=== PATIENT | female | born 2000 | race Caucasian/White ===

== ENCOUNTER 2021-04-08 08:19 | Outpatient (CLI) | payer BC, OTHER ==
[2021-04-08 10:16] LABS: Hemoglobin 12.5 g/dL (12.0-15.5); Mean Corpuscular HGB CONC 34.8 g/dL (32.0-36.0); Mean Corpuscular Hemoglobin 32.1 pg (27.0-33.0); Mean Corpuscular Volume 92.3 fl (81.6-98.3); Mean Platelet Volume 11.3 fl (7.4-10.4); Platelet Count 168 10x3/uL (150-450); RBC Distribution Width 13.2 % (11.5-14.5); Red Blood Cell (RBC) Count 3.89 10x6/uL (3.90-5.03); White Blood Cell (WBC) Count 9.5 10x3/uL (3.5-10.5)
[2021-04-08 10:24] LABS: HIV (1/2) Antibody/Antigen Non-Reactive (NonReactive); HIV 1/2 INDEX 0.09 S/CO (<1.00); Hep B Surf Ag Non-Reactive S/CO (NonReactive); Syphilis Antibody Nonreactive (Nonreactive); Syphilis Antibody Index 0.02 S/CO (<1.00 Non-Reactive)
[2021-04-08 10:26] LABS: HBSAg Index 0.21 S/CO (0-0.99)
== END 2021-04-08 08:20 | disposition home or self-care (01) ==
LOC: CSHLAB 08:19
PROVIDERS: ATTEND Obstetrics & Gynecology
DX: Z01.812 Encounter for preprocedural laboratory examination (principal); O34.211 Maternal care for low transverse scar from previous cesarean delivery; Z86.16 Personal history of COVID-19
CPT/HCPCS: 85027; 86780; 86900; 86901; 87340; 87389

== ENCOUNTER 2021-04-13 05:52 | Inpatient (IN) | payer BC, OTHER ==
[2021-04-13] MEDS ORDERED: Bicitra 30 ML UDCUP PO PRN (05:53)
[2021-04-13] MEDS ORDERED: hydrALAZINE 20 MG/ML VIAL SLOW IVP PRN ×2 (05:53→09:04)
[2021-04-13] MEDS ORDERED: Promethazine HCl 25 MG/ML VIAL IM PRN ×2 (05:53→09:02)
[2021-04-13] MEDS ORDERED: ceFAZolin 2 GM/Dextrose 50 ML 2 GM in Premix Bag 1 BAG IVPB SCH (05:53)
[2021-04-13] MEDS ORDERED: Famotidine/PF 20 mg/2ml Vial SLOW IVP PRN (05:53)
[2021-04-13] MEDS ORDERED: Lactated Ringer's 1,000 ML IV SCH (05:53)
[2021-04-13] MEDS ORDERED: Ondansetron PF 4 MG/2 ML Vial IVP PRN ×3 (05:53→09:04)
[2021-04-13 06:43] VITALS: BMI 29.5
[2021-04-13] MEDS ORDERED: Morphine PF 10 MG/10 ML VIAL ONE (07:08)
[2021-04-13] MEDS ORDERED: ePHEDrine Sulfate 50 MG/10 ML VIAL ONE (07:08)
[2021-04-13] MEDS ORDERED: Oxytocin 10 UNITS/ML VIAL ONE (07:09)
[2021-04-13] MEDS ORDERED: PHENYLEPHRINE-NS 100 MCG/ML 10 ML SYRINGE ONE (07:09)
[2021-04-13] MEDS ORDERED: Phenylephrine 10 MG/ML VIAL ONE (07:09)
[2021-04-13] MEDS ORDERED: Dexamethasone 4 mg/ml Vial ONE (07:09)
[2021-04-13] MEDS ORDERED: Ondansetron PF 4 MG/2 ML Vial ONE (07:09)
[2021-04-13] MEDS ORDERED: diphenhydrAMINE 50 MG/ML VIAL IVP PRN (09:02)
[2021-04-13] MEDS ORDERED: Naloxone HCl 0.4 mg/ml Vial IV PRN (09:02)
[2021-04-13] MEDS ORDERED: Hydrocerin (Eucerin) Cream 120 gm Jar TOP PRN (09:02)
[2021-04-13] MEDS ORDERED: Ondansetron HCl/PF 4 MG/2 ML Vial IVP PRN (09:02)
[2021-04-13] MEDS ORDERED: Promethazine HCl 25 MG SUPP PR PRN (09:02)
[2021-04-13] MEDS ORDERED: Meperidine HCl/PF 25 MG/ML VIAL SLOW IVP PRN (09:02)
[2021-04-13] MEDS ORDERED: Fentanyl 100 MCG/2 ML VIAL SLOW IVP PRN (09:02)
[2021-04-13] MEDS ORDERED: Naloxone HCl 0.4 mg/ml Vial IVP PRN ×2 (09:02)
[2021-04-13] MEDS ORDERED: Acetaminophen 325 MG TAB PO PRN (09:04)
[2021-04-13] MEDS ORDERED: diphenhydrAMINE 25 MG CAP PO PRN (09:04)
[2021-04-13] MEDS ORDERED: Boostrix 0.5 ML (Tdap) VIAL IM ONE (09:04)
[2021-04-13] MEDS ORDERED: Bisacodyl 10 MG SUPP PR PRN (09:04)
[2021-04-13] MEDS ORDERED: Misoprostol 200 MCG TAB PR PRN (09:04)
[2021-04-13] MEDS ORDERED: Lanolin Ointment 7 GM TUBE TOP PRN (09:04)
[2021-04-13] MEDS ORDERED: NS w/ Oxytocin 30 units 500 ML IV SCH (09:15)
[2021-04-13] MEDS ORDERED: Ketorolac Tromethamine 30 MG/ML VIAL IVP SCH (09:15)
[2021-04-13] MEDS ORDERED: Communication Order-Pharmacy FS SCH (09:15)
[2021-04-13] MEDS: Ketorolac Tromethamine 30 MG/ML VIAL IVP PRN ×2 (11:15→18:25)
[2021-04-13] MEDS: Lactated Ringer's 1,000 ML IV SCH ×2 (12:44→14:37)
[2021-04-13] MEDS: Simethicone Chewable 80 MG TAB PO PRN (14:36)
[2021-04-13] MEDS ORDERED: HYDROcodone/Acetaminophen 5/325 mg Tablet PO PRN (21:15)
[2021-04-13] MEDS ORDERED: Zolpidem Tartrate 5 MG TAB PO PRN (21:15)
[2021-04-13] MEDS: Docusate 100 MG CAP PO SCH (21:37)
[2021-04-13] MEDS: Ferrous Sulfate 325 MG TAB PO SCH (21:38)
[2021-04-14] MEDS: Lactated Ringer's 1,000 ML IV SCH ×4 (00:20→20:19)
[2021-04-14] MEDS: Simethicone Chewable 80 MG TAB PO PRN ×4 (02:07→22:42)
[2021-04-14 04:43] LABS: Hemoglobin 10.5 g/dL (12.0-15.5); Mean Corpuscular HGB CONC 34.9 g/dL (32.0-36.0); Mean Corpuscular Hemoglobin 32.2 pg (27.0-33.0); Mean Corpuscular Volume 92.3 fl (81.6-98.3); Mean Platelet Volume 11.4 fl (7.4-10.4); Platelet Count 148 10x3/uL (150-450); RBC Distribution Width 13.2 % (11.5-14.5); Red Blood Cell (RBC) Count 3.26 10x6/uL (3.90-5.03); White Blood Cell (WBC) Count 10.9 10x3/uL (3.5-10.5)
[2021-04-14] MEDS: Ketorolac Tromethamine 30 MG/ML VIAL IVP PRN (05:45)
[2021-04-14] MEDS: Ferrous Sulfate 325 MG TAB PO SCH ×2 (07:57→19:47)
[2021-04-14] MEDS: Docusate 100 MG CAP PO SCH ×2 (09:01→22:36)
[2021-04-14] MEDS: Prenatal Vitamin 1 TAB PO SCH (09:01)
[2021-04-14] MEDS: HYDROcodone/Acetaminophen 5/325 mg Tablet PO PRN (12:11)
[2021-04-14] MEDS: Ibuprofen 800 MG TAB PO SCH ×2 (14:00→22:36)
[2021-04-15] MEDS: HYDROcodone/Acetaminophen 5/325 mg Tablet PO PRN ×2 (04:46→10:21)
[2021-04-15 04:51] VITALS: TEMP 97.9
[2021-04-15] MEDS: Ibuprofen 800 MG TAB PO SCH (05:32)
[2021-04-15 07:56] VITALS: BP 115/55
[2021-04-15] MEDS: Docusate 100 MG CAP PO SCH (09:12)
[2021-04-15] MEDS: Simethicone Chewable 80 MG TAB PO PRN (09:12)
[2021-04-15] MEDS: Prenatal Vitamin 1 TAB PO SCH (09:12)
[2021-04-15] MEDS: Ferrous Sulfate 325 MG TAB PO SCH (09:13)
[2021-04-15] MEDS: Lactated Ringer's 1,000 ML IV SCH (10:38)
== END 2021-04-15 12:32 | disposition home or self-care (01) | DRG 788 ==
LOC: CSHLD 05:52 → CSHPP 11:28
PROVIDERS: ADMIT Obstetrics & Gynecology; ATTEND Obstetrics & Gynecology
PROC: 10D00Z1 Extraction of Products of Conception, Low, Open Approach (ICD-10-PCS; principal; 2021-04-13)
PROC: 0DNW0ZZ Release Peritoneum, Open Approach (ICD-10-PCS; 2021-04-13)
DX: O34.211 Maternal care for low transverse scar from previous cesarean delivery (principal); Z37.0 Single live birth; Z3A.39 39 weeks gestation of pregnancy; O69.81X0 Labor and delivery complicated by cord around neck, without compression, not applicable or unspecified; O99.62 Diseases of the digestive system complicating childbirth; K66.0 Peritoneal adhesions (postprocedural) (postinfection)
CPT/HCPCS: 36415; 51702; 85027; 86850; 86900; 86901; J0690; J1100; J1885; J2274; J2370; J2405; J2550; J2590; J7120; S0028

== ENCOUNTER 2022-06-15 11:50 | Emergency (ER) | payer BC, OTHER ==
[2022-06-15 12:29] LABS: Bilirubin Neg (Negative); Blood, Urine Negative (Negative); Clarity Clear (Clear); Glucose, Urine (Dipstick) Normal (Negative); Ketone, Urine Negative (Negative); Leukocyte Negative (Negative); Nitrite Negative (Negative); Protein, Urine (Dipstick) Negative (Neg-Trace); Urobilinogen Normal mg/dL (Less than 2); pH, Urine 6.5 (5.0-9.0)
[2022-06-15 12:33] LABS: Pregnancy Test - Urine (BHCG) Negative (Negative); Pregu Control Background? CLEAR/WHITE (CLR/WHITE); Pregu Control Bar Appear? YES (CONTROL BAR)
[2022-06-15 12:37] LABS: Amphetamine Not Detected (NotDetected); Barbiturates Screen Not Detected (NotDetected); Benzodiazepine Screen Not Detected (NotDetected); Cocaine Metabolite Screen Not Detected (NotDetected); Methadone Not Detected (NotDetected); Methamphetamine Not Detected (NotDetected); Opiate Screen Not Detected (NotDetected); Oxycodone Screen Not Detected (NotDetected); Phencyclidine (PCP) Not Detected (NotDetected); THC/Cannabinoid Screen Detected (NotDetected); Tricyclic Screen Not Detected (NotDetected)
[2022-06-15 12:41] LABS: #Monocytes 0.3 10x3/uL (0.0-1.1); #Neutrophils 4.4 10x3/uL (1.5-8.4); %Basophils 0.6 % (0.0-2.0); %Eosinophils 0.2 % (0.0-6.0); %Lymphocytes 25.4 % (18.0-47.0); %Monocytes 5.3 % (0.0-10.0); %Neutrophils 68.2 % (40.0-75.0); Hemoglobin 13.5 g/dL (12.0-15.5); Mean Corpuscular HGB CONC 34.5 g/dL (32.0-36.0); Mean Corpuscular Hemoglobin 30.3 pg (27.0-33.0); Mean Corpuscular Volume 87.9 fl (81.6-98.3); Mean Platelet Volume 10.8 fl (7.4-10.4); Platelet Count 267 10x3/uL (150-450); RBC Distribution Width 12.5 % (11.5-14.5); Red Blood Cell (RBC) Count 4.45 10x6/uL (3.90-5.03); White Blood Cell (WBC) Count 6.5 10x3/uL (3.5-10.5)
[2022-06-15 12:48] LABS: Acetaminophen Less than 10.0 mcg/mL (10.0-30.0); Alcohol Less than 10 mg/dL (Less than 10); Salicylate Less than 8.0 mg/dL (15.0-30.0)
[2022-06-15 12:49] LABS: ALT (SGPT) 11 U/L (8-55); AST (SGOT) 17 U/L (5-34); Albumin 4.7 g/dL (3.5-5.0); Alkaline Phosphatase 54 U/L (40-110); Anion Gap 14 mmol/L (10-20); BUN (Urea Nitrogen) 9 mg/dL (7.0-18.7); Bilirubin, Total 0.5 mg/dL (0.2-1.2); Calc. Creatinine Clearance 0 mL/min (70-130); Calcium 9.1 mg/dL (7.8-10.44); Carbon Dioxide 22 mmol/L (22-29); Chloride 108 mmol/L (98-107); Estimated GFR 108; Globulin 2.6 g/dL (2.4-3.5); Glucose 93 mg/dL (70-105); Potassium 4.3 mmol/L (3.5-5.1); Protein, Total 7.3 g/dL (6.0-8.3); Sodium 140 mmol/L (136-145)
== END 2022-06-15 15:24 | disposition home or self-care (01) ==
LOC: CSHERS 11:50
DX: S51.812A Laceration without foreign body of left forearm, initial encounter (principal); X78.1XXA Intentional self-harm by knife, initial encounter
CPT/HCPCS: 36415; 80053; 80306; 80307; 81003; 81025; 84443; 85025; 99285